=== PATIENT | female | born 1945 | race Native Hawaiian/Other Pacific Islander ===

== ENCOUNTER 2019-03-07 13:23 | Inpatient (IN) | payer MEDICARE ==
[~2019-03-07] VITALS: Ht 157.5 cm; Wt 71.7 kg
[2019-03-07] MEDS ORDERED: ACET325T53 PO ×2 (14:04)
[2019-03-07] MEDS ORDERED: METF-440 PO (14:04)
[2019-03-07] MEDS ORDERED: CITA20TA19 PO (14:04)
[2019-03-07] MEDS ORDERED: SENN-168 PO (14:04)
[2019-03-07] MEDS ORDERED: GLIP10TA11 PO (14:04)
[2019-03-07] MEDS ORDERED: GUAI-959 PO (14:04)
[2019-03-07] MEDS ORDERED: OLAN2.5T3 PO (14:04)
[2019-03-07] MEDS ORDERED: MAG30ORA PO (14:04)
[2019-03-07] MEDS ORDERED: DOCU100C36 PO (14:04)
[2019-03-07] MEDS ORDERED: IBUP-1955 PO (14:04)
[2019-03-07] MEDS ORDERED: MELA5TAB PO (14:04)
[2019-03-07] MEDS ORDERED: LISI-607 PO (14:04)
[2019-03-07] MEDS ORDERED: PANT40TA2 PO (14:04)
[2019-03-07] MEDS ORDERED: TEMA15CA PO (14:04)
[2019-03-07] MEDS ORDERED: METO-356 PO (14:04)
[2019-03-07] MEDS ORDERED: ALLO100T PO (14:04)
[2019-03-07] MEDS ORDERED: CLON0.1T PO (14:04)
[2019-03-07] MEDS ORDERED: BLOO-140 IN (14:04)
[2019-03-07] MEDS ORDERED: ALBU2.5V38 IH (14:04)
[2019-03-07] MEDS ORDERED: LINA5TAB PO (14:04)
[2019-03-07] MEDS ORDERED: ALBU8.5H8 IH (14:04)
[2019-03-07 14:09] LABS: *BILIRUBIN,URIN NEGATIVE (NEGATIVE); *BLOOD, URINE NEGATIVE (NEGATIVE); *CLARITY,URINE CLEAR (CLEAR); *COLOR,URINE YELLOW (YELLOW); *KETONES,URINE NEGATIVE (NEGATIVE); *UROBILINOGEN,URINE 0.2 E.U./dl (NORMAL); LEUKOCYTE ESTERASE ,URINE NEGATIVE (NEGATIVE); NITRITE, URINE NEGATIVE (NEGATIVE); UGLUCOSE NEGATIVE (NEGATIVE)
[2019-03-07 14:17] LABS: BASOPHILS # (AUTO) 0.1 K/uL (0.0-8.0); BASOPHILS % (AUTO) 0.7 % (0.0-2.0); EOSINOPHILS # (AUTO) 0.4 K/uL (0.0-0.7); EOSINOPHILS % (AUTO) 3.6 % (0.0-7.0); HEMATOCRIT 36.8 % (31.2-41.9); LYMPHOCYTES # (AUTO) 2.9 K/uL (20.0-40.0); LYMPHOCYTES % (AUTO) 27.8 % (20.5-51.5); MEAN CORPUSCULAR HEMOGLOBIN 28.8 uug (24.7-32.8); MEAN CORPUSCULAR HGB CONC 33 g/dL (32.3-35.6); MEAN CORPUSCULAR VOLUME 88.3 fL (75.5-95.3); MONOCYTES # (AUTO) 0.8 K/uL (2.0-10.0); MONOCYTES % (AUTO) 7.5 % (0.0-11.0); NEUTROPHILS # (AUTO) 6.2 K/uL (1.8-8.9); NEUTROPHILS % (AUTO) 60.4 % (38.5-71.5); PLATELET COUNT (AUTO) 352 K/uL (179-408); RED BLOOD CELL COUNT(AUTO) 4.17 MIL/uL (3.63-4.92); WHITE BLOOD COUNT (AUTO) 10.3 K/uL (3.8-11.8)
[2019-03-07 14:25] LABS: *AMPHETAMINE, URINE NEGATIVE (NEGATIVE); *BARBITURATE, URINE NEGATIVE (NEGATIVE); *CANNABINOID, URINE NEGATIVE (NEGATIVE); *COCCAINE, URINE NEGATIVE (NEGATIVE); *OPIATE, URINE NEGATIVE (NEGATIVE); *PHENCYCLIDINE SCREEN,URINE NEGATIVE (NEGATIVE)
[2019-03-07 14:25] LABS: CARBON DIOXIDE 25 mmol/L (21-32); CHLORIDE 102 mmol/L (98-107); CREATININE 1.1 mg/dL (0.6-1.3); GLUCOSE 203 mg/dL (74-106); POTASSIUM 5.3 mmol/L (3.5-5.1); UREA NITROGEN, BLOOD 25 mg/dL (7-18)
[2019-03-07 14:30] LABS: ACETAMINOPHEN < 2.0 ug/mL (10-30); ALANINE AMINOTRANSFERASE 27 U/L (14-59); ALKALINE PHOSPHATASE 86 U/L (50-136); ASPARTATE AMINOTRANSFERASE 17 U/L (15-37); BILIRUBIN,DIRECT 0.1 mg/dL (0.0-0.2); BILIRUBIN,TOTAL 0.2 mg/dL (0.2-1.0); TOTAL PROTEIN, SERUM 8.4 g/dL (6.4-8.2)
[2019-03-07 14:31] LABS: ETHANOL < 3 MG/DL (0-0)
[2019-03-07] MEDS ORDERED: SODIUM POLYSTYRENE SULFONATE 15 G/60 ML LIQUID UDC PO ONE (14:45)
--- NOTE | 2019-03-07 14:45 | NUR ---
is speaking with pt via [employer] phone.
[2019-03-07] MEDS ORDERED: SODIUM POLYSTYRENE SULF POWDER 15 GM UDC ONE (14:57)
--- NOTE | 2019-03-07 15:07 | NUR ---
SBAR report given to Jt in MHU via telephone.
--- NOTE | 2019-03-07 15:30 | NUR ---
Per pt is medically clear and may be trans to MHU.
--- NOTE | 2019-03-07 15:38 | NUR ---
Pt trans to MHU, NAD noted.
[2019-03-07] MEDS ORDERED: MAGNESIUM HYDROXIDE 30 ML LIQUID UDC PO PRN (16:00)
[2019-03-07] MEDS ORDERED: BLOOD SUGAR DIAGNOSTIC 1 EACH STRIP VI ONE (16:00)
[2019-03-07] MEDS ORDERED: MAG HYDROX/AL HYDROX/SIMETH 30 ML LIQUID UDC PO PRN (16:00)
[2019-03-07] MEDS: ACETAMINOPHEN 325 MG TABLET PO PRN (16:43)
[2019-03-07] MEDS: LORAZEPAM 0.5 MG TABLET PO PRN ×2 (16:43→20:46)
[2019-03-07 18:52] VITALS: BP 149/74
[2019-03-07] MEDS ORDERED: OLANZAPINE 10 MG VIAL IM STA (21:27)
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
[2019-03-08] MEDS ORDERED: diphenhydrAMINE 50 MG/1 ML VIAL IM ONE (00:30)
[2019-03-08] MEDS ORDERED: HALOPERIDOL LACTATE 5 MG/1 ML VIAL IM ONE (00:30)
[2019-03-08] MEDS ORDERED: LORAZEPAM 2 MG/1 ML VIAL IV ONE (00:30)
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
--- NOTE | 2019-03-08 02:30 | NUR ---
PATIENT WAS NOTED LESS COMBATIVE, SHE WAS TAKEN TO THE BATHROOM, THEN A SHOWER WAS GIVEN, WATER WAS OFFERED. PATIENT WAS TAKEN TO HER BED. HOWEVER; SHE REFUSED TO REMAIN IN HER BED. SHE WAS PLACED IN A JAY CHAIR. WILL CONTINUE TO MONITOR.
--- NOTE | 2019-03-08 05:30 | NUR ---
PT CONTINUE RESTLESS, AGITATED, REFUSING TO REMAIN IN HER BED AND MAKING ROOM MATES UPSET. SHE IS UNABLE TO CFS AT THIS TIME. PT ALSO DID NOT SLEEP DURING THE NIGHT. OBTAINED NEW ORDER FORM DR RENTERIA TO PLACE PATIENT ON 1:1 FOR SAFETY. ORDER NOTED, REWIND OPERATOR WAS NOTIFY. WILL CONTINUE TO MONITOR.
--- NOTE | 2019-03-08 06:30 | NUR ---
PATIENT WAS TAKEN TO THE BATHROOM, THEN SHE WAS PLACE IN HER BED. BED ALARM ON. SHE IS NOTED LESS AGITATED, LESS IRRITABLE, LESS ANXIOUS. WILL CONTINUE TO MONITOR.
[2019-03-08 07:52] LABS: CARBON DIOXIDE 29 mmol/L (21-32); CHLORIDE 103 mmol/L (98-107); CREATININE 1.1 mg/dL (0.6-1.3); GLUCOSE 206 mg/dL (74-106); POTASSIUM 4.3 mmol/L (3.5-5.1); UREA NITROGEN, BLOOD 24 mg/dL (7-18)
[2019-03-08] MEDS: OLANZAPINE 2.5 MG TABLET PO SCH ×2 (10:06→16:39)
[2019-03-08] MEDS: DIVALPROEX SPRINKLE 125 MG CAP.SPRINK PO SCH ×3 (10:06→16:39)
[2019-03-08] MEDS ORDERED: CLONIDINE HCL 0.1 MG TABLET PO PRN (10:15)
[2019-03-08] MEDS ORDERED: ALBUTEROL SULFATE 2.5 MG/3 ML NEBU IH PRN (10:15)
--- NOTE | 2019-03-08 10:25 | NUR ---
PT.SLEEPING IN BED ,WITH SITTER 1:1,WAS ABLE TO GIVE PO MEDS. NO S/S OF DISTRESS OR PAIN NOTED.
[2019-03-08] MEDS ORDERED: DEXTROSE 50% 50 ML DISP.SYRIN IV PRN (10:30)
[2019-03-08] MEDS: BLOOD SUGAR DIAGNOSTIC 1 EACH STRIP VI SCH ×3 (11:56→20:36)
[2019-03-08] MEDS: INSULIN REGULAR, HUMAN 300 UNIT/3 ML VIAL SQ PRN ×3 (12:15→20:38)
--- NOTE | 2019-03-08 13:40 | NUR ---
Pt.walking on hallway with sitter.[place] unstable ,walking with walker and stand by assist,pt.high risk for fall.
--- NOTE | 2019-03-08 18:10 | NUR ---
Pt.awake, with 1:1 sitter eating dinner,no s/s of distress,denies pain @ time.
[2019-03-08 19:55] VITALS: BP 100/56
--- NOTE | 2019-03-08 20:00 | NUR ---
RECEIVED PATIENT SITTING IN HER BED. PATIENT ALERT TO SELF. GEORGI[place] SPEAKING ONLY. IN NO ACUTE DISTRESS. NO SIGNS OF PAIN OR SOB. VS WNL. NO SIGNS OR SYMPTOMS OF SI/HALLUCINATION OR DELUSION. 1:1 SITTER AT BEDSIDE. NO ANXIETY OR AGGRESSIVE BEHAVIOR NOTED AT THIS TIME. CONTINUE TO MONITOR.
[2019-03-08] MEDS: SENNOSIDES 1 TABLET PO SCH (20:36)
[2019-03-08] MEDS: ACETAMINOPHEN 325 MG TABLET PO PRN (20:44)
--- NOTE | 2019-03-09 06:07 | NUR ---
Patient slept a total of 7.0 hours.
[2019-03-09] MEDS: PANTOPRAZOLE SODIUM 40 MG TABLET.DR PO SCH (06:09)
[2019-03-09] MEDS: BLOOD SUGAR DIAGNOSTIC 1 EACH STRIP VI SCH ×4 (06:30→20:20)
[2019-03-09] MEDS: ALLOPURINOL 100 MG TABLET PO SCH (08:57)
[2019-03-09] MEDS: glipiZIDE 10 MG TABLET PO SCH (08:57)
[2019-03-09] MEDS: DIVALPROEX SPRINKLE 125 MG CAP.SPRINK PO SCH ×3 (08:57→16:49)
[2019-03-09] MEDS: LINAGLIPTIN 5 MG TABLET PO SCH (08:57)
[2019-03-09] MEDS: DOCUSATE SODIUM 100 MG CAPSULE PO SCH (08:57)
[2019-03-09] MEDS: OLANZAPINE 2.5 MG TABLET PO SCH ×2 (08:57→16:49)
[2019-03-09] MEDS: METOPROLOL SUCCINATE XL 25 MG TAB.SR.24H PO SCH (08:58)
[2019-03-09] MEDS: LISINOPRIL 5 MG TABLET PO SCH (08:59)
[2019-03-09 09:00] VITALS: BP 167/85
[2019-03-09] MEDS: INSULIN REGULAR, HUMAN 300 UNIT/3 ML VIAL SQ PRN ×4 (09:45→20:12)
[2019-03-09 16:00] VITALS: BP 150/74
[2019-03-09] MEDS: ACETAMINOPHEN 325 MG TABLET PO PRN (16:55)
[2019-03-09] MEDS: GUAIFENESIN/DEXTROMETHORPHAN 5 ML UDC PO PRN (17:52)
[2019-03-09] MEDS: SENNOSIDES 1 TABLET PO SCH (20:17)
[2019-03-09 20:50] VITALS: BP 142/72
--- NOTE | 2019-03-09 21:06 | NUR ---
RECEIVED PATIENT SITTING IN HER BED. PATIENT ALERT ORIENTED X1 . NO SOB, NO INDICATION OF PAIN OR DISCOMFORT. BRUNEIAN SPEAKING ONLY. 1:1 SITTER AT BEDSIDE. MED COMPLIANT. NO BEHAVIORAL ISSUE AT THIS TIME, WILL CONTINUE TO MONITOR
[2019-03-09] MEDS: ZOLPIDEM 5 MG TABLET PO PRN (22:34)
--- NOTE | 2019-03-09 22:34 | NUR ---
PRN ambien, given for insomnia.
[2019-03-10] MEDS: LORAZEPAM 0.5 MG TABLET PO PRN ×2 (00:27→23:22)
--- NOTE | 2019-03-10 00:27 | NUR ---
remains awake, and restless. PRN ativan was given, at this time.
[2019-03-10] MEDS: ACETAMINOPHEN 325 MG TABLET PO PRN ×4 (00:28→20:22)
--- NOTE | 2019-03-10 01:30 | NUR ---
appears to be asleep. no distress noted.
--- NOTE | 2019-03-10 01:35 | NUR ---
pt is now awake. remains agitated.
[2019-03-10] MEDS: PANTOPRAZOLE SODIUM 40 MG TABLET.DR PO SCH (06:27)
--- NOTE | 2019-03-10 06:30 | NUR ---
pt did not sleep, all night. remains agitated. refused AM accucheck. sitter remains at side, for safety. will continue to monitor closely.
[2019-03-10] MEDS: BLOOD SUGAR DIAGNOSTIC 1 EACH STRIP VI SCH ×4 (06:31→20:00)
[2019-03-10 07:30] VITALS: BP 160/98
[2019-03-10] MEDS: ALLOPURINOL 100 MG TABLET PO SCH (10:07)
[2019-03-10] MEDS: OLANZAPINE 2.5 MG TABLET PO SCH ×3 (10:08→20:22)
[2019-03-10] MEDS: LISINOPRIL 5 MG TABLET PO SCH (10:08)
[2019-03-10] MEDS: DOCUSATE SODIUM 100 MG CAPSULE PO SCH (10:08)
[2019-03-10] MEDS: DIVALPROEX SPRINKLE 125 MG CAP.SPRINK PO SCH ×3 (10:08→17:14)
[2019-03-10] MEDS: METOPROLOL SUCCINATE XL 25 MG TAB.SR.24H PO SCH (10:09)
[2019-03-10] MEDS: glipiZIDE 10 MG TABLET PO SCH (10:10)
[2019-03-10] MEDS: LINAGLIPTIN 5 MG TABLET PO SCH (10:10)
[2019-03-10] MEDS: INSULIN REGULAR, HUMAN 300 UNIT/3 ML VIAL SQ PRN ×4 (10:19→21:28)
[2019-03-10] MEDS: GUAIFENESIN/DEXTROMETHORPHAN 5 ML UDC PO PRN ×2 (13:22→20:21)
--- NOTE | 2019-03-10 13:47 | NUR ---
Initial discharge plan Patient currently resides at [facility] [Address: [address] [place] [address]; ] and wants to go back upon discharge from hospital. lunchroom worker contacted facility and pending readmission for patient. lunchroom worker spoke with patient's grandson, Hari [[phone]] who stated that is patient cannot go back to [facility], they would like something closer to home. lunchroom worker will continue to work with patient, family, and MD regarding a safe and proper discharge plan.
[2019-03-10 17:16] VITALS: BP 148/77
--- NOTE | 2019-03-10 17:31 | NUR ---
End of shift report: Patient resting in bed with 1:1 sitter at bedside for safety. Compliant with nursing care and medication. Clinidine PRN given once for diastolic of 98. Maalox PRN given today for stomache upset. Tylenol given for knee pain, resolved. Tussin PRN given for cough, resolved.
[2019-03-10] MEDS: SENNOSIDES 1 TABLET PO SCH (20:22)
[2019-03-10 21:00] VITALS: BP 140/72
[2019-03-10] MEDS: ZOLPIDEM 5 MG TABLET PO PRN (22:01)
--- NOTE | 2019-03-10 22:01 | NUR ---
received to care, slightly anxious, but pleasant upon approach. compliant with all medications, but refused insulin coverage (blood sugar was 131 ). as of 2200, she remains awake. PRN paulien was given for insomnia, at this time. currently eating a snack. no distress noted. will continue to monitor closely.
--- NOTE | 2019-03-10 23:22 | NUR ---
remains awake, and restless, wandering around her room, at times. PRN ativan was given.
--- NOTE | 2019-03-11 01:15 | NUR ---
appears to be asleep. no distress noted.
[2019-03-11] MEDS: PANTOPRAZOLE SODIUM 40 MG TABLET.DR PO SCH (06:23)
--- NOTE | 2019-03-11 06:30 | NUR ---
pt has slept 1 hour, in the last two days. she has been restless, intrusive with room mates when they are sleeping, and difficult to redirect, at times. as of 629, she finally appears to be falling asleep. no distress noted.
[2019-03-11] MEDS: BLOOD SUGAR DIAGNOSTIC 1 EACH STRIP VI SCH ×4 (06:33→20:22)
[2019-03-11 07:30] VITALS: BP 147/89
[2019-03-11] MEDS: INSULIN REGULAR, HUMAN 300 UNIT/3 ML VIAL SQ PRN ×4 (08:23→20:26)
[2019-03-11] MEDS: DIVALPROEX SPRINKLE 125 MG CAP.SPRINK PO SCH ×3 (08:25→16:18)
[2019-03-11] MEDS: ALLOPURINOL 100 MG TABLET PO SCH (08:25)
[2019-03-11] MEDS: LINAGLIPTIN 5 MG TABLET PO SCH (08:26)
[2019-03-11] MEDS: OLANZAPINE 2.5 MG TABLET PO SCH ×3 (08:26→20:18)
[2019-03-11] MEDS: LISINOPRIL 5 MG TABLET PO SCH (08:31)
[2019-03-11] MEDS: METOPROLOL SUCCINATE XL 25 MG TAB.SR.24H PO SCH (08:32)
[2019-03-11] MEDS: DOCUSATE SODIUM 100 MG CAPSULE PO SCH (08:32)
[2019-03-11] MEDS: glipiZIDE 10 MG TABLET PO SCH (08:32)
[2019-03-11] MEDS: GUAIFENESIN/DEXTROMETHORPHAN 5 ML UDC PO PRN (12:31)
[2019-03-11] MEDS: ACETAMINOPHEN 325 MG TABLET PO PRN ×2 (12:31→20:18)
--- NOTE | 2019-03-11 13:44 | NUR ---
Gps/Sales Consultant Called grandti Salas, left message, pt. wants to talk to her family. Used phone horseradish grinder was able to talk to patient and translate for pt. Complained of stomachache, mom 30 ml was given po. Requesting if she can uses oil to rub on her stomach for pain. Video Control Operator from Dietary Dept. assisted staff in translating Vincentian. . Adequate fluid intake.Remains with occ. dry hacking coughs., prn offered,.
[2019-03-11 16:00] VITALS: BP 147/76
--- NOTE | 2019-03-11 17:36 | NUR ---
Gps/Ventilating Engineer- No return call noted from her grandson Maritza. Patient was reassured.
[2019-03-11] MEDS: SENNOSIDES 1 TABLET PO SCH (20:18)
[2019-03-11] MEDS: INSULIN GLARGINE,HUM 300 UNITS/3 ML CARTRIDGE SQ SCH (20:25)
[2019-03-11 20:41] VITALS: BP 145/69
[2019-03-12] MEDS ORDERED: OLANZAPINE 10 MG VIAL IM STA
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
[2019-03-12] MEDS: BLOOD SUGAR DIAGNOSTIC 1 EACH STRIP VI SCH ×5 (06:59→22:27)
[2019-03-12] MEDS: PANTOPRAZOLE SODIUM 40 MG TABLET.DR PO SCH (06:59)
[2019-03-12 07:30] VITALS: BP 109/91
[2019-03-12] MEDS: INSULIN REGULAR, HUMAN 300 UNIT/3 ML VIAL SQ PRN ×5 (08:18→22:31)
[2019-03-12] MEDS: ACETAMINOPHEN 325 MG TABLET PO PRN ×3 (09:05→23:42)
[2019-03-12] MEDS: DOCUSATE SODIUM 100 MG CAPSULE PO SCH (09:07)
[2019-03-12] MEDS: LINAGLIPTIN 5 MG TABLET PO SCH (09:07)
[2019-03-12] MEDS: DIVALPROEX SPRINKLE 125 MG CAP.SPRINK PO SCH ×3 (09:07→16:16)
[2019-03-12] MEDS: OLANZAPINE 2.5 MG TABLET PO SCH ×2 (09:08→16:17)
[2019-03-12] MEDS: METOPROLOL SUCCINATE XL 25 MG TAB.SR.24H PO SCH (09:09)
[2019-03-12] MEDS: glipiZIDE 10 MG TABLET PO SCH (09:09)
[2019-03-12] MEDS: ALLOPURINOL 100 MG TABLET PO SCH (09:09)
[2019-03-12] MEDS: LISINOPRIL 5 MG TABLET PO SCH (09:10)
[2019-03-12] MEDS: GUAIFENESIN/DEXTROMETHORPHAN 5 ML UDC PO PRN ×2 (10:53→21:33)
[2019-03-12] MEDS: LORAZEPAM 0.5 MG TABLET PO PRN ×2 (10:58→21:33)
--- NOTE | 2019-03-12 10:59 | NUR ---
Gps/New Media Strategist- Used blue shock absorber installer phone, patient appeared to be anxious, kept coming to Nurses Station wanting something and difficulty redirecting patient. On and off dry coughing noted, prn cough meds. given, tylenol 650 mg po was also administered for gen discomfort. When asked why she she didnt sleep well last night , per patient the unit was so noisy and peaople kept going to her room.
--- NOTE | 2019-03-12 14:34 | NUR ---
Gps/Stone Rigger- In and out of her room ,interacting with staff, somewhat needy kept asking for something, w/c staff unable to undesrtand, pt's grandson finally return call was able to speak to pt. . Patient appeared to be longing for a opendorse ..
[2019-03-12 16:00] VITALS: BP 136/77
--- NOTE | 2019-03-12 18:00 | NUR ---
Gps/Manager Water- Had breathing treatment with R.T. , remains to have occ. coughing .Claimed of having stress incontinence, wears own depends diaper. Patient kept talking in Belarusian, kept coming into the Nurses station demanding her needs, w/c staff has difficulty making up to her needs. Had been medication compliant.
--- NOTE | 2019-03-12 19:28 | NUR ---
RECEIVED PT IN THE HALLWAY. PT SHOWS NO SIGNS OF ACUTE DISTRESS. PT IN AND OUT OF HER ROOM. PT PLEASANT WHEN APPROACHED. SAFETY AND COMFORT PROVIDED. WILL CONTINUE TO MONITOR.
[2019-03-12] MEDS: SENNOSIDES 1 TABLET PO SCH (20:04)
[2019-03-12] MEDS: OLANZAPINE 5 MG TABLET PO SCH (20:04)
[2019-03-12] MEDS: INSULIN GLARGINE,HUM 300 UNITS/3 ML CARTRIDGE SQ SCH ×2 (20:05→22:29)
[2019-03-12 20:47] VITALS: BP 139/81
[2019-03-12] MEDS ORDERED: OLANZAPINE 2.5 MG TABLET PO SCH (21:00)
[2019-03-12] MEDS: ZOLPIDEM 5 MG TABLET PO PRN (22:59)
[2019-03-13] MEDS: PANTOPRAZOLE SODIUM 40 MG TABLET.DR PO SCH (06:03)
[2019-03-13] MEDS: BLOOD SUGAR DIAGNOSTIC 1 EACH STRIP VI SCH ×4 (06:35→20:56)
--- NOTE | 2019-03-13 06:41 | NUR ---
PT SLEPT 1.30 HOURS. PT SHOWS NO SIGNS OF ACUTE DISTRESS. PRESCRIBED MEDICATION GIVEN AND PT TOLERATED IT WELL.PT WALKING IN AND OUT OF THE ROOM. PT GIVEN ROBITUSSIN AT 2133H, AND ATIVAN 2133H. PT AGITATED AND RESTLESS. AMBIEN GIVEN AT 2259H AND TYLENOL 2342H . PT COOPERATIVE WITH CARE. SAFETY AND COMFORT PROVIDED. WILL ENDORSE ACCORDINGLY TO INCOMING NURSE FOR CONTINUITY OF CARE.
[2019-03-13 07:30] VITALS: BP 136/74
[2019-03-13] MEDS: LORAZEPAM 0.5 MG TABLET PO PRN ×2 (08:25→20:16)
[2019-03-13] MEDS: glipiZIDE 10 MG TABLET PO SCH (08:43)
[2019-03-13] MEDS: DIVALPROEX SPRINKLE 125 MG CAP.SPRINK PO SCH ×3 (08:43→17:44)
[2019-03-13] MEDS: OLANZAPINE 2.5 MG TABLET PO SCH ×2 (08:44→17:44)
[2019-03-13] MEDS: METOPROLOL SUCCINATE XL 25 MG TAB.SR.24H PO SCH (08:44)
[2019-03-13] MEDS: ALLOPURINOL 100 MG TABLET PO SCH (08:44)
[2019-03-13] MEDS: LINAGLIPTIN 5 MG TABLET PO SCH (08:44)
[2019-03-13] MEDS: DOCUSATE SODIUM 100 MG CAPSULE PO SCH (08:44)
[2019-03-13] MEDS: LISINOPRIL 5 MG TABLET PO SCH (08:45)
[2019-03-13] MEDS: INSULIN REGULAR, HUMAN 300 UNIT/3 ML VIAL SQ PRN ×3 (08:52→21:04)
[2019-03-13] MEDS: ACETAMINOPHEN 325 MG TABLET PO PRN ×2 (13:11→22:49)
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
[2019-03-13 15:32] VITALS: BP 105/60
[2019-03-13 20:00] VITALS: BP 145/88
[2019-03-13] MEDS: INSULIN GLARGINE,HUM 300 UNITS/3 ML CARTRIDGE SQ SCH (21:02)
[2019-03-13] MEDS: OLANZAPINE 5 MG TABLET PO SCH (21:16)
[2019-03-13] MEDS: SENNOSIDES 1 TABLET PO SCH (21:16)
--- NOTE | 2019-03-13 22:00 | NUR ---
received to care, appearing anxious, ambulating in hallway intermittently. PRN ativan was given at 2015, but it was minimally effective. she was compliant with medications, but slightly resistive to insulin coverage, but eventually agreed. as of 2199, she remains awake, in room, lying in bed, in no acute distress, talking to self. will continue to monitor closely.
[2019-03-13] MEDS: ZOLPIDEM 5 MG TABLET PO PRN (22:49)
--- NOTE | 2019-03-13 22:49 | NUR ---
remains awake, and restless. PRN ambien was given at this time.
[2019-03-14] MEDS: GUAIFENESIN/DEXTROMETHORPHAN 5 ML UDC PO PRN ×2 (00:04→21:05)
--- NOTE | 2019-03-14 00:04 | NUR ---
remains awake. PRN robitussin, given for non productive cough.
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
--- NOTE | 2019-03-14 02:00 | NUR ---
appears to be asleep, in bed.
--- NOTE | 2019-03-14 06:00 | NUR ---
slept 2.5 hours. no distress noted.
[2019-03-14] MEDS: PANTOPRAZOLE SODIUM 40 MG TABLET.DR PO SCH (06:48)
[2019-03-14] MEDS: BLOOD SUGAR DIAGNOSTIC 1 EACH STRIP VI SCH ×4 (06:49→21:00)
[2019-03-14 07:30] VITALS: BP 136/56
[2019-03-14] MEDS: LORAZEPAM 0.5 MG TABLET PO PRN ×2 (07:51→21:04)
[2019-03-14] MEDS: METOPROLOL SUCCINATE XL 25 MG TAB.SR.24H PO SCH (08:17)
[2019-03-14] MEDS: DOCUSATE SODIUM 100 MG CAPSULE PO SCH (08:17)
[2019-03-14] MEDS: ALLOPURINOL 100 MG TABLET PO SCH (08:17)
[2019-03-14] MEDS: LINAGLIPTIN 5 MG TABLET PO SCH (08:17)
[2019-03-14] MEDS: OLANZAPINE 2.5 MG TABLET PO SCH ×2 (08:17→16:44)
[2019-03-14] MEDS: glipiZIDE 10 MG TABLET PO SCH (08:17)
[2019-03-14] MEDS: DIVALPROEX SPRINKLE 125 MG CAP.SPRINK PO SCH ×2 (08:17→16:44)
[2019-03-14] MEDS: LISINOPRIL 5 MG TABLET PO SCH (08:18)
[2019-03-14] MEDS: ACETAMINOPHEN 325 MG TABLET PO PRN ×3 (10:53→22:23)
[2019-03-14 15:54] VITALS: BP 158/73
[2019-03-14] MEDS: INSULIN REGULAR, HUMAN 300 UNIT/3 ML VIAL SQ PRN ×2 (16:43→16:51)
[2019-03-14] MEDS ORDERED: DIVALPROEX 250 MG TABLET.DR PO SCH (17:00)
[2019-03-14 19:48] VITALS: BP 151/81
[2019-03-14] MEDS: INSULIN GLARGINE,HUM 300 UNITS/3 ML CARTRIDGE SQ SCH (21:00)
--- NOTE | 2019-03-14 21:00 | NUR ---
Patient Refused to allow a blood sugar check. Therefore the routine and prn insulin was held. Will try again in the am.
[2019-03-14] MEDS: SENNOSIDES 1 TABLET PO SCH (21:04)
[2019-03-14] MEDS: OLANZAPINE 5 MG TABLET PO SCH (21:04)
[2019-03-14] MEDS: ZOLPIDEM 5 MG TABLET PO PRN (22:24)
--- NOTE | 2019-03-15 05:45 | NUR ---
Patient was up and down all night. 4 hours of sleep. Some loud outbursts during the shift, but no combative behavior. Continuing to monitor. No distress noted at this time.
[2019-03-15] MEDS: PANTOPRAZOLE SODIUM 40 MG TABLET.DR PO SCH (06:13)
[2019-03-15] MEDS: BLOOD SUGAR DIAGNOSTIC 1 EACH STRIP VI SCH ×4 (06:13→20:51)
[2019-03-15 07:30] VITALS: BP 120/75
[2019-03-15] MEDS: DOCUSATE SODIUM 100 MG CAPSULE PO SCH (08:39)
[2019-03-15] MEDS: DIVALPROEX SPRINKLE 125 MG CAP.SPRINK PO SCH ×2 (08:39→16:48)
[2019-03-15] MEDS: OLANZAPINE 2.5 MG TABLET PO SCH ×2 (08:39→16:47)
[2019-03-15] MEDS: glipiZIDE 10 MG TABLET PO SCH (08:42)
[2019-03-15] MEDS: ALLOPURINOL 100 MG TABLET PO SCH (08:42)
[2019-03-15] MEDS: LINAGLIPTIN 5 MG TABLET PO SCH (08:42)
[2019-03-15] MEDS: METOPROLOL SUCCINATE XL 25 MG TAB.SR.24H PO SCH (08:51)
[2019-03-15] MEDS: LISINOPRIL 5 MG TABLET PO SCH (08:54)
[2019-03-15] MEDS: INSULIN REGULAR, HUMAN 300 UNIT/3 ML VIAL SQ PRN ×2 (12:13→17:54)
[2019-03-15 16:00] VITALS: BP 155/91
[2019-03-15] MEDS: GUAIFENESIN/DEXTROMETHORPHAN 5 ML UDC PO PRN (16:50)
[2019-03-15] MEDS: ACETAMINOPHEN 325 MG TABLET PO PRN ×2 (16:51→21:42)
[2019-03-15] MEDS: INSULIN GLARGINE,HUM 300 UNITS/3 ML CARTRIDGE SQ SCH (20:50)
[2019-03-15] MEDS: OLANZAPINE 5 MG TABLET PO SCH (20:50)
[2019-03-15] MEDS: SENNOSIDES 1 TABLET PO SCH (20:50)
--- NOTE | 2019-03-15 20:59 | NUR ---
Patient refused to allow a blood glucose check, therefor the PM insulin was held. Patient did take PO medications without difficulty.
[2019-03-15 21:36] VITALS: BP 177/90
[2019-03-15] MEDS: LORAZEPAM 0.5 MG TABLET PO PRN (21:41)
[2019-03-16] MEDS: BLOOD SUGAR DIAGNOSTIC 1 EACH STRIP VI SCH (06:10)
[2019-03-16] MEDS: PANTOPRAZOLE SODIUM 40 MG TABLET.DR PO SCH (06:10)
[2019-03-16 07:49] VITALS: BP 141/95
[2019-03-16] MEDS: DIVALPROEX SPRINKLE 125 MG CAP.SPRINK PO SCH (08:11)
[2019-03-16] MEDS: OLANZAPINE 2.5 MG TABLET PO SCH (08:11)
[2019-03-16] MEDS: DOCUSATE SODIUM 100 MG CAPSULE PO SCH (08:11)
[2019-03-16 08:12] VITALS: BP 141/95
[2019-03-16] MEDS: LINAGLIPTIN 5 MG TABLET PO SCH (08:12)
[2019-03-16] MEDS: LISINOPRIL 5 MG TABLET PO SCH (08:12)
[2019-03-16] MEDS: METOPROLOL SUCCINATE XL 25 MG TAB.SR.24H PO SCH (08:12)
[2019-03-16] MEDS: ALLOPURINOL 100 MG TABLET PO SCH (08:13)
[2019-03-16] MEDS: glipiZIDE 10 MG TABLET PO SCH (08:13)
--- NOTE | 2019-03-16 08:31 | NUR ---
Discharge note Patient will be discharged to [facility] [[address] [place] [address]; ] via Ambulance transportation. Please arrange Ambulance transportation for patient to be picked up at 10:00am. SW spoke with Donna [Surveyor Geophysical Prospecting at [facility]; ] who stated patient can return today. Patient�s grandson, Hari Arce [[phone]] who is aware and agreeable with discharge plans. Patient is alert and oriented x3-4, and is unable to plan for self-care, however, patient is willing to accept care provided at the facility. Patient denies any suicidal or homicidal ideation. Patient is aware and agreeable with discharge plans. Patient will continue to follow-up with her Psychiatrist Dr. Saleh and Cold Header Dr. Martinez at [facility] [[address] [place] [address]; ]. Patient was provided additional mental health referrals to [facility] Crisis Line and the National Suicide Prevention Lifeline .
--- NOTE | 2019-03-16 13:41 | NUR ---
1220 Called Center at [facility] spoke with Danuta and report given regarding patient mental status, medications to continue upon hospital discharged- staff verbalized understanding. 1230 Discharged to facility mentioned above by ambulance. Patient denies SI/HI. No delusion. No a/v hallucination noted.
== END 2019-03-16 12:30 | DRG 885 ==
LOC: ER 13:23 → GPS 15:37
PROVIDERS: ADMIT Psychiatry & Neurology Psychiatry; ATTEND Nurse Practitioner Acute Care
DX: F25.9 Schizoaffective disorder, unspecified (principal); E11.65 Type 2 diabetes mellitus with hyperglycemia; A06.3 Ameboma of intestine; E87.5 Hyperkalemia; I11.9 Hypertensive heart disease without heart failure; G47.00 Insomnia, unspecified; E86.0 Dehydration; K21.9 Gastro-esophageal reflux disease without esophagitis; R26.9 Unspecified abnormalities of gait and mobility; Z79.84 Long term (current) use of oral hypoglycemic drugs; Z86.19 Personal history of other infectious and parasitic diseases; M10.9 Gout, unspecified; R13.10 Dysphagia, unspecified; Z79.899 Other long term (current) drug therapy
CPT/HCPCS: 36415; 71045; 80307; 85025; 93005; 94664; A4663; G0480; G0480-TC; J1200; J1630; J1815; J2060; J2358; J8499